=== PATIENT | male | born 1935 | race Caucasian/White ===

== ENCOUNTER 2024-01-09 15:52 | Emergency (ER) | payer OTHER, SELFPAY ==
[2024-01-09 16:05] VITALS: BP 112/86
[2024-01-09 16:33] LABS: % Eosinophils 1.2 % (0-6); % Immature Granulocytes 0.3 % (0-0.5); % Lymphocytes 14.6 % (20.5-51.1); % Monocytes 8.1 % (1.7-9.3); % Neutrophils 74.8 % (42.2-75.2); Absolute Basophils 0.1 10^3/uL (0-0.2); Absolute Eosinophils 0.1 10^3/uL (0-0.7); Absolute Lymphocytes 0.9 10^3/uL (1.2-3.4); Absolute Monocytes 0.5 10^3/uL (0.1-0.6); Absolute Neutrophils 4.5 10^3/uL (1.4-6.5); Hematocrit 39.8 % (39.0-52.0); Hemoglobin 13.6 g/dL (13.0-18.0); Mean Corp Hgb Conc. 34.2 g/dL (33.0-37.0); Mean Corpuscular Hgb 29.9 pg (27.0-31.0); Mean Corpuscular Volume 87.5 fL (80.0-94.0); Mean Platelet Volume 9.8 fL (7.4-10.4); Nucleated Red Blood Cells % 0 % (-); Platelet Count 216 10^3/uL (130-400); Red Blood Cell Count 4.55 10^6/uL (4.70-6.10)
[2024-01-09 16:47] LABS: Lactic Acid 1.3 mmol/L (0.7-2.0)
[2024-01-09 16:56] LABS: ALT (SGPT) 14 U/L (0-50); AST (SGOT) 18 U/L (17-59); Albumin 4.2 g/dl (3.5-5.0); Alkaline Phosphatase 91 U/L (38-126); Blood Urea Nitrogen 12 mg/dl (9-20); Carbon Dioxide 26 mmol/L (22-30); Chloride 103 mmol/L (98-107); Glucose 100 mg/dl (70-99); Lipase 97 U/L (23-300); Potassium 3.9 mmol/L (3.5-5.1); Sodium 134 mmol/L (135-145); Total Bilirubin 0.7 mg/dl (0.2-1.3); Total Protein 7.1 g/dl (6.3-8.2); eGFR > 60.00
[2024-01-09 16:58] LABS: Troponin I < 0.012 ng/ml
[2024-01-09 19:38] VITALS: BP 148/77
[2024-01-09 19:42] VITALS: BP 148/77
[2024-01-09 20:57] LABS: Troponin I < 0.012 ng/ml
--- NOTE | 2024-01-09 21:17 | ED.GENMED ---
Addendum entered and electronically signed by Aris Serra MD 01/09/24 21:47:
Chest x-ray read by radiology reviewed�do not suspect pneumonia as he has no dyspnea, no fever, no leukocytosis and although he has had occasional cough it sounds like this is more of a chronic issue and not an acute problem. Could be scarring or
mass, informed patient and family member that he should follow-up with primary for repeat imaging.
Original Note:
History of Present Illness
General
Chief Complaint: Cough
Source: patient and family
Exam Limitations: none
Time Seen by Provider: 01/09/24 18:03
Nursing documentation reviewed up to this point in time: agreed with
Travel History
Have you had any contact with someone who has COVID-19?: No
Do you have any symptoms of coronavirus? Fever > 100 degrees, chills, cough, shortness of breath, sore throat, loss of taste or smell, muscle aches, or headache?: No
History of Present Illness
History of Present Illness:
88-year-old male with a past medical history of BPH who presents to the emergency department for evaluation after an episode of feeling generally unwell. Patient says that he was in his normal state of health until this morning shortly after he ate
breakfast. He says that he began to feel 'just not right.' He is very vague and cannot specifically describe how he was feeling. His family member is at the bedside and says that he was slightly shaky and appeared very anxious. He says that he
had a sense of impending doom 'I thought I was going to .' He says that since then he has had significant belching but the feeling has generally passed. During this episode he does say that he passed multiple large volume bowel movements. He
says he had a mild headache which has resolved. Has had a mild cough recently not significantly worse. He says he did not have any chest pain, back pain, abdominal pain. Did not feel nauseated or vomit. He did not feel short of breath. He says
he has never had a similar episode. Family member offers that he has been 'panicking' more frequently due to his age.
Past History
Past History
ED Past Medical History: Other (Has not seen medical provider or fasting labs, etc for >10 yrs)
ED Past Surgical History: Other (cataracts 2019)
Social History
Tobacco: Former smoker
Review of Systems
Review of Systems
All Other Systems: ROS reviewed and negative except as documented in HPI and ROS
Constitutional: Denies fever, fatigue or chills
EENT: Denies sore throat or runny nose
Respiratory: Reports cough; Denies trouble breathing
Cardiac: Denies chest pain, diaphoresis or palpitations
ABD/GI: Reports diarrhea (Passed multiple formed stools (he says he passed 6 large stools)) and other (Belching); Denies abdominal pain, nausea or vomiting
: Denies flank pain
Musculoskeletal: Denies neck pain or back pain
Neurological: Reports headache and other (Generalized shakiness); Denies dizzy, weakness or numbness
Psychiatric: Reports anxiety
Phy Exam
Physical Exam
Physical Exam:
General: Awake, alert, oriented x3; no acute distress
Head: Normocephalic, atraumatic
Eyes: Conjunctiva normal, EOMI, pupils equal round reactive to light bilateral
Throat: Airway intact, handling secretions
Neck: Trachea midline, supple without meningismus
Lungs: Clear to auscultation bilaterally, no wheezing, rales, rhonchi
Heart: Regular rate and rhythm, no murmurs, gallops, or rubs
Abd: Soft, non distended, nontender
Neuro: Cranial nerves grossly intact, speech fluid, no gross motor or sensory deficit
Skin: no rash
Extremities: No edema in extremities, equal pulses in all extremities
Scores
Heart Failure Risk
Heart Failure Risk Score: Not Applicable
Heart Score for Chest Pain Patients
STEMI patient?: Not applicable
Withdrawal Assessment of Alcohol
Withdrawal Assessment Completed?: Not applicable
Course
Orders/Labs/Results
Orders:
Orders
01/09/24 16:08
Electrocardiogram (*1) Urgent
Reason for Study: Fatigue / Weakness
CT Head W/o Iv Contrast Urgent
Comment:
Reason For Exam: headache
CR Chest - 2 Views Urgent
Comment:
Reason For Exam: weakness
01/09/24 16:09
EKG- Treatment ONCE
01/09/24 16:23
Complete Blood Count/With Diff Urgent
Comprehensive Metabolic Panel Urgent
Lactic Acid Urgent
Lipase Urgent
Troponin I Urgent
01/09/24 20:19
Troponin I Urgent
Abnormal Lab Results
01/09/24
16:23
RBC 4.55 L 10^6/uL
(4.70-6.10)
Absolute Lymphs (auto) 0.9 L 10^3/uL
(1.2-3.4)
Lymphocytes % 14.6 L %
(20.5-51.1)
Sodium 134 L mmol/L
(135-145)
Glucose 100 H mg/dl
(70-99)
01/09/24 16:23
01/09/24 16:23
Vital Signs
Initial and Last Documented VS:
Initial Vital Signs
Pulse Resp BP Pulse Ox
86 20 112/86 99
01/09/24 16:05 01/09/24 16:05 01/09/24 16:05 01/09/24 16:05
Last Documented Vital Signs
Temp Pulse Resp BP Pulse Ox
36.7 C 79 14 148/77 96
01/09/24 20:13 01/09/24 19:42 01/09/24 19:42 01/09/24 19:42 01/09/24 19:42
MDM/Problems Addressed
Differential Diagnosis Includes:
Wide differential for patient's vague unwell feeling that lasted for about an hour or 2 and has resolved�must rule out cardiac event, stroke, dysrhythmia, electrolyte derangement; differential could also include vagal event as he was passing
multiple stools during this episode had multiple bowel movements during this episode, panic attack also consideration
MDM/Problems Addressed:
88-year-old male presents for evaluation after an episode of feeling generally unwell that lasted for an hour or 2 and has completely resolved. He is very vague about his symptoms he says that he may have had a mild headache but otherwise did not
have any pain�his main complaint is a feeling of panic or impending doom. He is asymptomatic here in the emergency room. His vital signs are normal and he has a benign physical exam. His EKG shows no STEMI. No dysrhythmia. Will check labs
including a CBC and a CMP, serial troponins and an abundance of caution although patient denies any chest pain during the episode. Will check CT head. Check a chest x-ray as he had had a cough for the past few days. Will monitor on telemetry
reassess after the above.
Labs reviewed: CBC unremarkable, CMP no clinically significant abnormalities. Troponin undetectable x 2. CT head negative. Chest x-ray no acute disease. Patient observed here for over 4 hours with no recurrence of symptoms, persistently normal
vitals. No clear indication at this point for admission. May have been vagal episode related to multiple bowel movements. I spoke to the patient and his family member at length and offered admission for further observation overnight given his age
and reported severity but he feels well feels comfortable with discharge and will follow-up with his primary physician. Advised to return with any return of symptoms or any new symptoms that are concerning. Spoke about return precautions all
questions answered.
*Radiology
Radiology exam reviewed: radiology read reviewed
*Pulse Oximetry
Patient hypoxic: no
*EKG
Interpreted by ED Provider?: Yes
Heart Rate: 77
Rate: normal
Rhythm: sinus
[place]: normal axis
Interval: normal interval
QRS Pattern: normal QRS
Ischemia: no ischemia
*Critical Care Note
Total Time (30-74mins, 75-104mins- exclusive of procedures): Not Applicable
Data Reviewed
Source: patient and family
ED Attending Note
-
Portions of this chart may have been created with voice recognition software.� Occasional wrong word or��sound alike� substitutions may have occurred due to the inherent limitations of voice recognition software.
Discharge Plan
Departure
Patient Disposition: Home (Routine Discharge)
Date of Disposition: 01/09/24
Time of Disposition: 21:38
Patient with high blood pressure during this ER visit?: No
Discharge Problem:
Headache
Instructions: Headache, Adult ED
Prescriptions:
No Action
calcium carbonate [Antacid (calcium carbonate)] 1 TABLET tablet,chewable
1 tab PO Q6HPRN PRN (Reason: GERD)
lactase [Dairy Relief] 3,000 UNIT tablet
3,000 unit PO TIDPRN PRN (Reason: LACTOSE INTOLERANCE)
polyethylene glycol 3350 17 GRAMS powder in packet
17 grams PO DAILY Qty: 30 0RF
hydrocortisone acetate 25 MG suppository
25 mg [place] BID Qty: 20 0RF
tamsulosin [Flomax] 0.4 MG capsule
0.4 mg PO DAILY Qty: 14 0RF
Referrals:
Vivek Casper DO [Family Provider] - Follow up in 5-7 days
Activity Restrictions/Additional Instructions:
Thank you for visiting the Emergency Department at [facility].
1. Please schedule a follow up appointment as directed. Call first thing tomorrow morning to make an appointment.
2. If indicated, please take your medications as instructed and indicated on discharge paperwork.
3. If any of your symptoms do not improve, or persist, or become more severe within 6-12 hours, please return to the emergency department for further care.
4. Please return to the emergency department if you develop a headache, neck pain/stiffness, fever greater than 100.4F, chest pain, shortness of breath, persistent nausea, vomiting, slurred speech, difficulty walking, numbness/tingling, weakness,
signs of infection or any other symptoms that are worrisome to you.
Please call [phone] if you have any questions.
Interventions
Interventions:
*Risk Screen - Suicide Last Done: 01/09/24 16:05
*General Assessment Last Done: 01/09/24 16:05
ED- Fall Risk Assessment Last Done: 01/09/24 19:44
ED- Pulmonary Assessment Last Done: 01/09/24 19:44
== END 2024-01-09 21:48 | disposition home or self-care (01) ==
LOC: EMR 15:52
PROVIDERS: EMERGENCY PHYSICIAN Emergency Medicine; FAMILY PHYSICIAN Family Medicine
DX: R51.9 Headache, unspecified (principal); N40.0 Benign prostatic hyperplasia without lower urinary tract symptoms; Z87.891 Personal history of nicotine dependence
CPT/HCPCS: 99284; 70450; 71046; 80053; 83605; 83690; 84484; 85025; 93005

== ENCOUNTER 2024-07-18 10:44 | Emergency (ER) | payer OTHER, SELFPAY ==
[2024-07-18 10:52] VITALS: BP 140/84
[2024-07-18 11:57] VITALS: BP 131/80
[2024-07-18 11:58] VITALS: BMI 24.7
[2024-07-18 12:00] VITALS: BP 141/74
[2024-07-18] MEDS: REGLAN 10 MG IV (12:01)
[2024-07-18] MEDS: PEPCID 20 MG IV (12:01)
[2024-07-18] MEDS: NSS 500 IV (12:04)
[2024-07-18 12:25] LABS: ALT (SGPT) 11 U/L (0-50); AST (SGOT) 17 U/L (17-59); Alkaline Phosphatase 75 U/L (38-126); Blood Urea Nitrogen 9 mg/dl (9-20); Calcium 10.1 mg/dl (8.4-10.2); Carbon Dioxide 30 mmol/L (22-30); Chloride 102 mmol/L (98-107); Estimated Creatinine Clearance 49 ml/min; Glucose 100 mg/dl (70-99); Lipase 94 U/L (23-300); Potassium 4.2 mmol/L (3.5-5.1); Sodium 138 mmol/L (135-145); Total Bilirubin 1.1 mg/dl (0.2-1.3); Total Protein 6.5 g/dl (6.3-8.2); eGFR > 60.00
[2024-07-18] MEDS: BENADRYL 50 MG IV (12:28)
[2024-07-18 12:29] LABS: % Eosinophils 0.7 % (0-6); % Immature Granulocytes 0.3 % (0-0.5); % Lymphocytes 15.7 % (20.5-51.1); % Neutrophils 74.3 % (42.2-75.2); Absolute Basophils 0.1 10^3/uL (0-0.2); Absolute Lymphocytes 0.9 10^3/uL (1.2-3.4); Absolute Monocytes 0.5 10^3/uL (0.1-0.6); Absolute Neutrophils 4.5 10^3/uL (1.4-6.5); Hematocrit 37.6 % (39.0-52.0); Hemoglobin 13.2 g/dL (13.0-18.0); Mean Corp Hgb Conc. 35.1 g/dL (33.0-37.0); Mean Corpuscular Hgb 29.7 pg (27.0-31.0); Mean Corpuscular Volume 84.7 fL (80.0-94.0); Mean Platelet Volume 9.8 fL (7.4-10.4); Nucleated Red Blood Cells % 0 % (-); Platelet Count 259 10^3/uL (130-400); Red Blood Cell Count 4.44 10^6/uL (4.70-6.10); Red Cell Dist. Width 12.7 % (11.5-14.5)
[2024-07-18 12:42] LABS: Urine Albumin Negative (Neg - Trace); Urine Bilirubin Negative (Negative); Urine Character Clear (Clear); Urine Color Yellow; Urine Glucose Negative (Negative); Urine Ketone Negative (Negative); Urine Leukocyte Negative (Negative); Urine Nitrite Negative (Negative); Urine Occult Blood Negative (Negative); Urine Urobilinogen Negative (Neg - 1+)
[2024-07-18 12:55] LABS: TSH Reflex To Free T4 2.19 uIU/ml (0.47-4.68)
[2024-07-18 13:00] VITALS: BP 129/71
--- NOTE | 2024-07-18 14:36 | ED.GENMED ---
History of Present Illness
General
Chief Complaint: Abdominal Symptoms
Source: patient and family
Exam Limitations: none
Time Seen by Provider: 07/18/24 11:01
Nursing documentation reviewed up to this point in time: agreed with
History of Present Illness
History of Present Illness:
88-year-old male with past medical history of GERD as well as BPH presenting to the emergency department today with concerns of multiple symptoms. He claims that he is had some intermittent nausea intermittent headache as well as some rectal
bleeding that believes is from hemorrhoids. Claims he is also had some full body aches that have been lasting for a few minutes at a time every other month. Denies specific chest pain shortness of breath.
Past History
Past History
ED Past Medical History: Other (Has not seen medical provider or fasting labs, etc for >10 yrs)
ED Past Surgical History: Other (cataracts 2019)
Social History
Tobacco: Former smoker
Review of Systems
Review of Systems
Allergies reviewed?: Yes
All Other Systems: ROS reviewed and negative except as documented in HPI and ROS
Phy Exam
Physical Exam
Physical Exam:
GENERAL: Alert , in no apparent distress
EYE: pupils equal and reactive
NECK: Supple, no significant adenopathy.
ENT: o/p clr, mmm.
CARDIAC: Regular rate and rhythm .
LUNGS: Clear breath sounds bilaterally, no acute respiratory distress, no wheezes/rales/rhonchi
ABDOMEN: Soft, without focal tenderness, no r/g, no cvat
NEUROLOGICAL: Alert and oriented, no focal neuro deficits
SKIN: Warm and dry, skin intact.
MUSCULOSKELETAL: No edema, well perfused.
PSYCH: Normal and appropriate interaction.
Course
Orders/Labs/Results
Orders:
Orders
07/18/24 11:49
Electrocardiogram (*1) Stat
Reason for Study: Abdominal Pain
EKG- Treatment ONCE
Famotidine [Pepcid] 20 mg IV NOW STA
Metoclopramide [Reglan] 10 mg IV NOW STA
07/18/24 11:50
0.9% Sodium Chloride 500 ml [Nss] 500 ml IV BOLUS
07/18/24 11:53
Complete Blood Count/With Diff Urgent
Comprehensive Metabolic Panel Urgent
Lipase Urgent
TSH Reflex To Free T4 Urgent
07/18/24 12:17
Urinalysis Reflex To Culture Urgent
Date Specimen was Collected: 07/18/24
Time Specimen was Collected: 12:14
07/18/24 12:22
Diphenhydramine [Benadryl] 50 mg IV NOW STA
Abnormal Lab Results
07/18/24
11:53
RBC 4.44 L 10^6/uL
(4.70-6.10)
Hct 37.6 L %
(39.0-52.0)
Absolute Lymphs (auto) 0.9 L 10^3/uL
(1.2-3.4)
Lymphocytes % 15.7 L %
(20.5-51.1)
Glucose 100 H mg/dl
(70-99)
07/18/24 11:53
07/18/24 11:53
Vital Signs
Initial and Last Documented VS:
Initial Vital Signs
Temp Pulse Resp BP Pulse Ox
98.0 F 90 16 140/84 98
07/18/24 10:52 07/18/24 10:52 07/18/24 10:52 07/18/24 10:52 07/18/24 10:52
Last Documented Vital Signs
Temp Pulse Resp BP Pulse Ox
98.0 F 90 16 129/71 96
07/18/24 10:52 07/18/24 10:52 07/18/24 10:52 07/18/24 13:00 07/18/24 13:00
MDM/Problems Addressed
MDM/Problems Addressed:
80-year-old male presenting to the emergency department today with concerns of nausea, intermittent headache body aches indigestion over the past few days also intermittently over the past few months. Upon arrival vital signs are normal. Labs are
obtained without acute abnormalities normal heart lung examination no abdominal pain normal urinalysis normal EKG. Patient was given Reglan for patient's symptoms. He did have improvement of symptoms but did have some feelings of agitation was
given Benadryl with full resolution of symptoms. Rectal examination with brown stool was guaiac negative. He was advised for close outpatient follow-up with GI as well as neurology for his intermittent headache. Otherwise return precautions given
but stable for outpatient management.
*Critical Care Note
Total Time (30-74mins, 75-104mins- exclusive of procedures): Not Applicable
ED Attending Note
-
Portions of this chart may have been created with voice recognition software.� Occasional wrong word or��sound alike� substitutions may have occurred due to the inherent limitations of voice recognition software.
Discharge Plan
Departure
Patient Disposition: Home (Routine Discharge)
Date of Disposition: 07/18/24
Time of Disposition: 14:38
Patient with high blood pressure during this ER visit?: No
Condition: Good
Covid-19: Not Applicable
Discharge Problem:
Headache, Nausea
Instructions: Headache, Adult ED
Prescriptions:
No Action
calcium carbonate [Antacid (calcium carbonate)] 1 TABLET tablet,chewable
1 tab PO Q6HPRN PRN (Reason: GERD)
lactase [Dairy Relief] 3,000 UNIT tablet
3,000 unit PO TIDPRN PRN (Reason: LACTOSE INTOLERANCE)
polyethylene glycol 3350 17 GRAMS powder in packet
17 grams PO DAILY Qty: 30 0RF
hydrocortisone acetate 25 MG suppository
25 mg [place] BID Qty: 20 0RF
tamsulosin [Flomax] 0.4 MG capsule
0.4 mg PO DAILY Qty: 14 0RF
Referrals:
Bradley Villafana MD [Active] - Follow up in 5-7 days
Sukhjinder Potts DO [Family Provider] -
Derrick Nelson MD [Active] - Follow up in 5-7 days
Activity Restrictions/Additional Instructions:
You came to the emergency department today with concerns of multiple symptoms. Here your reassuring assessment. Please follow closely with neurology as well as GI. Return to the emergency department for any worsening, new or concerning symptoms.
Interventions
Interventions:
*Risk Screen - Suicide Last Done: 07/18/24 11:40
*General Assessment Last Done: 07/18/24 11:40
*Neglect/Abuse Screening Last Done: 07/18/24 11:40
KR-Trtxwf-Hpscihfeot Assessment Last Done: 07/18/24 11:40
Discharge Date and Time
Print Language: GIBRALTARIAN
[2024-07-18 15:03] VITALS: BP 123/79
== END 2024-07-18 15:04 | disposition home or self-care (01) ==
LOC: EMR 10:44
PROVIDERS: Physician Assistant; EMERGENCY PHYSICIAN Emergency Medicine; FAMILY PHYSICIAN Family Medicine
DX: R51.9 Headache, unspecified (principal); R11.0 Nausea; K21.9 Gastro-esophageal reflux disease without esophagitis; N40.0 Benign prostatic hyperplasia without lower urinary tract symptoms; Z87.891 Personal history of nicotine dependence
CPT/HCPCS: 99283; 80053; 81003; 83690; 84443; 85025; 93005

== ENCOUNTER 2024-09-26 18:02 | Emergency (ER) | payer OTHER, SELFPAY ==
[2024-09-26 18:07] VITALS: BP 123/56
--- NOTE | 2024-09-26 19:19 | ED.GENMED ---
History of Present Illness
General
Chief Complaint: Anal/Rectal Problem
Source: patient
Exam Limitations: none
Time Seen by Provider: 09/26/24 18:45
Nursing documentation reviewed up to this point in time: agreed with
History of Present Illness
History of Present Illness:
Patient is an 89-year-old male who presents to the emergency department complaining Of swelling and pain of his left buttock. Patient states this started a few weeks ago but over the last 4 days began to grow and throb and become painful to sit.
Patient denies fever or chills. Patient denies any nausea, vomiting, constipation or diarrhea. Patient denies any pain with bowel movements. Patient denies any previous history of similar episodes. Patient denies any symptoms.
Past History
Past History
ED Past Medical History: GERD and Other (Psoriasis, anxiety, cataracts, balance difficulty)
ED Past Surgical History: Other (cataracts 2019)
Social History
Tobacco: Former smoker
Review of Systems
Review of Systems
All Other Systems: Not applicable
Phy Exam
Physical Exam
Physical Exam:
Physical Exam
General: mild distress, alert and appropriate, well nourished, well hydrated
HENT: Normocephalic, supple
Eyes: Clear sclera, conjuctiva without injection
Heart: Regular rhythm and rate. No S3, S4. No murmur.
Lungs: No respiratory distress, no stridor, lung sounds clear and equal bilaterally
Abdomen: Soft, nontender, no organomegaly, BS good
Neuro: Alert and oriented x 3, CN II - XII intact, no motor focality
Skin: Left pilonidal abscess in the superior aspect of the medial left buttock
Psychiatric: well kept. interactive and cooperative
Extremities: No edema, cyanosis, tenderness
Course
Orders/Labs/Results
Orders:
Orders
09/26/24 19:17
Fentanyl Citrate/Pf [Sublimaze] 50 mcg IV NOW STA
Ondansetron Injectable [Zofran] 4 mg IV NOW STA
09/26/24 19:19
Wound Culture [Wound/Abscess/Other Culture] Urgent
THOMAS Source: Buttock
Specimen Description:
Date Specimen was Collected: 09/26/24
Time Specimen was Collected: 19:19
09/26/24 20:00
0.9% Sodium Chloride 500 ml [Nss] 500 ml IV 500 mls/hr
Vital Signs
Initial and Last Documented VS:
Initial Vital Signs
Temp Pulse Resp BP Pulse Ox
98.7 F 106 20 123/56 94
09/26/24 18:07 09/26/24 18:07 09/26/24 18:07 09/26/24 18:07 09/26/24 18:07
Last Documented Vital Signs
Temp Pulse Resp BP Pulse Ox
98.7 F 80 12 115/64 97
09/26/24 18:07 09/26/24 20:00 09/26/24 20:00 09/26/24 20:00 09/26/24 20:00
Procedures
Incision/Drainage/Joint Aspiration
Left Superior Medial Buttock:
Anethesia: 1% Lidocaine with Epi and Added Na bicarb to local
Preparation: cleaned with Betadine
Type of procedure: incise and drain
Nature of site: abscess
Description of abscess: greater than 3cm
Loculations broken up: Yes
How much fluid was obtained?: large amount
Fluid description: purulent
Treatment: left open for drainage, packed with gauze and debrided
Additional information:
Area was irrigated with normal saline. Patient tolerated procedure well. Given the patient's age will be started on antibiotics.
*Radiology
Radiology exam reviewed: other (na)
*Pulse Oximetry
Patient hypoxic: no
*EKG
Interpreted by ED Provider?: NA
*Medical Case Worker Interpretation
Rate: Medical Case Worker- N/A
*Critical Care Note
Total Time (30-74mins, 75-104mins- exclusive of procedures): Not Applicable
ED Attending Note
-
Portions of this chart may have been created with voice recognition software.� Occasional wrong word or��sound alike� substitutions may have occurred due to the inherent limitations of voice recognition software.
Discharge Plan
Departure
Patient Disposition: Home (Routine Discharge)
Date of Disposition: 09/26/24
Time of Disposition: 20:28
Patient with high blood pressure during this ER visit?: No
Condition: Fair
Covid-19: Not Applicable
Discharge Problem:
Pilonidal abscess
Instructions: Pilonidal Cyst (DC), How to Do a Sitz Bath
Prescriptions:
New
amoxicillin-pot clavulanate 875-125 mg tablet
1 tab PO BID Qty: 10 0RF
No Action
lactase [Dairy Relief] 3,000 UNIT tablet
3,000 unit PO PRN PRN (Reason: LACTOSE INTOLERANCE)
tamsulosin [Flomax] 0.4 MG capsule
0.4 mg PO DAILY Qty: 14 0RF
lorazepam 0.5 mg Tablet
0.5 mg PO BID
finasteride 5 mg Tablet
5 mg PO DAILY
escitalopram oxalate 5 mg Tablet
5 mg PO DAILY
Referrals:
Elver Saab MD [Active] - Follow up in 5-7 days
NONE,* [Family Provider] -
Activity Restrictions/Additional Instructions:
If the packing falls out no problem. Try to soak the area in water for 20 to 30 minutes 4-5 times a day. If you develop fever or more pain please return otherwise take acetaminophen 650 mg every 6 hours for pain and follow-up with the referrals.
Interventions
Interventions:
*Risk Screen - Suicide Last Done: 09/26/24 18:11
*General Assessment Last Done: 09/26/24 18:11
*Neglect/Abuse Screening Last Done: 09/26/24 18:11
ED- Fall Risk Assessment Last Done: 09/26/24 19:42
*ED COVID-19 Vaccine History Last Done: 09/26/24 18:11
ED-Skin Assessment Last Done: 09/26/24 19:42
Discharge Date and Time
Print Language: IRISH
[2024-09-26 19:22] VITALS: BMI 22.8
[2024-09-26 19:27] VITALS: BP 135/64
[2024-09-26] MEDS: ZOFRAN 4 MG IV (19:32)
[2024-09-26] MEDS: SUBLIMAZE 50 MCG IV (19:35)
--- NOTE | 2024-09-26 19:47 | EDRN ---
Pulse ox dropped into mid 80's - pt placed on 4 lpm O2 - Dr Washington informed and will be in to see pt soon. Pt updated.
[2024-09-26 19:51] VITALS: BP 117/63
--- NOTE | 2024-09-26 19:54 | EDRN ---
Pt says he thought he got a bug bite on his 'backside' a few weeks ago and notes it has been getting worse. Pt unable to sit without discomfort. Significant other came home and looked at it tonight and told him he was going to the ED. No
fever/chills.
[2024-09-26 20:00] VITALS: BP 115/64
[2024-09-26 20:29] VITALS: BP 125/65
--- NOTE | 2024-09-26 20:32 | EDRN ---
Wound no longer draining. Applied folded 4x4s between buttocks, folded abd pad placed on top and dressing taped. Pt getting dressed for discharge
[2024-09-26] MEDS: AUGMENTIN 875 MG/125 MG 1 TABLET PO (20:40)
== END 2024-09-26 20:48 | disposition home or self-care (01) ==
LOC: EMR 18:02
PROVIDERS: EMERGENCY PHYSICIAN Emergency Medicine
DX: L05.01 Pilonidal cyst with abscess (principal); Z87.891 Personal history of nicotine dependence
CPT/HCPCS: 10080; 96374; 96375; 99284; 87070; 87205